=== PATIENT | female | born 1940 | race Caucasian/White ===

== ENCOUNTER → 2021-03-08 12:04 | Outpatient (CLI) | payer MEDICARE, SELFPAY ==
--- NOTE | 2021-03-08 | DI.RAD.S_ITS ---
PROCEDURE: XR DEXA AXIAL SKELETON INDICATIONS: encounter for screening of osteoporosis COMPARISON: None. FINDINGS: This blank DEXA report has been sent in error by the PACS system. The correct and complete report will be forthcoming in 1-2 days. Thank you for your patience and understanding. Dictated by: Sherice Magdaleno MD, PhD on 03/08/2021 at 13:11 Approved by: Sherice Magdaleno MD, PhD on 03/08/2021 at 13:12
== END ==
PROVIDERS: Referring Provider Internal Medicine; Visit Provider Internal Medicine
DX: Z78.0 Asymptomatic menopausal state (principal); Z13.820 Encounter for screening for osteoporosis; E11.9 Type 2 diabetes mellitus without complications; E07.9 Disorder of thyroid, unspecified
CPT/HCPCS: 77080

== ENCOUNTER → 2023-01-02 15:49 | Outpatient (CLI) | payer MEDICARE, SELFPAY ==
[2023-01-02 16:32] LABS: Influenza A - CEPHEID Flu A NEGATIVE (NEGATIVE); Influenza B - CEPHEID Flu B NEGATIVE (NEGATIVE); Respiratory Syncytial Virus Negative (Negative)
[2023-01-02 17:29] LABS: COVID-19 CEPHEID 4-PLEX PCR Negative (Negative)
== END ==
PROVIDERS: Visit Provider Physician Assistant
DX: J06.9 Acute upper respiratory infection, unspecified (principal)
CPT/HCPCS: 0241U

== ENCOUNTER → 2023-12-11 14:10 | Outpatient (CLI) | payer OTHER, MEDICARE, SELFPAY ==
--- NOTE | 2023-12-11 14:12 | DI.MG.S_ITS ---
BILATERAL DIGITAL SCREENING MAMMOGRAM 3D/2D WITH CAD: 12/11/2023 CLINICAL: Baseline exam. Routine screening. No prior exams were available for comparison. There are scattered areas of fibroglandular density in both breasts (category b / 25%-50% glandular tissue). Current study was also evaluated with a Computer Aided Detection (CAD) system. No significant masses, calcifications, or other findings are seen in either breast. IMPRESSION: NEGATIVE There is no mammographic evidence of malignancy. A 1 year screening mammogram is recommended. Based on the Tyrer Cuzick model (a risk assessment model) the patient's lifetime risk is 0.4% and her 10 year risk is 0.0%. According to the ACR, ACS, and NCCN guidelines, an annual breast MRI exam along with mammogram is recommended if the patient's lifetime risk is 20% or greater. This exam was interpreted at Station ID: [id number]. NOTE: For mammograms, a report in lay terms will be sent to the patient. Approximately 15% of breast malignancies will not be visualized mammographically. In the management of a palpable breast mass, a negative mammogram must not discourage biopsy of a clinically suspicious lesion. Electronically Signed By: Jasmine rizzo/[email or web address]:12/19/2023 10:58:27 letter sent: Normal Exam ACR BI-RADS Category 1: Negative 3341F
== END ==
PROVIDERS: PCP Student in an Organized Health Care Education/Training Program; Referring Provider Student in an Organized Health Care Education/Training Program; Visit Provider Student in an Organized Health Care Education/Training Program
DX: Z12.31 Encounter for screening mammogram for malignant neoplasm of breast (principal); R92.323 Mammographic fibroglandular density, bilateral breasts
CPT/HCPCS: 77063; 77067

== ENCOUNTER → 2024-09-13 09:32 | Outpatient (CLI) | payer MEDICARE, SELFPAY ==
--- NOTE | 2024-09-13 09:35 | DI.RAD.S_ITS ---
PROCEDURE: XR WRIST RT MIN 3V INDICATIONS: WRIST PAIN TECHNIQUE: 3 views of the wrist were acquired. COMPARISON: None. FINDINGS: Bones: No acute fractures or dislocations. No suspicious bony lesions. Mild degenerative changes in the wrist most prominent at the 1st carpometacarpal and triscaphe joints. Soft tissues: No suspicious soft tissue calcifications. IMPRESSION: Mild osteoarthrosis. No acute osseous abnormality. Approved by: Edgard Em M.D. on 09/13/2024 at 20:07
== END ==
PROVIDERS: PCP Family Medicine; Referring Provider Family Medicine; Visit Provider Family Medicine
DX: M19.031 Primary osteoarthritis, right wrist (principal); M18.11 Unilateral primary osteoarthritis of first carpometacarpal joint, right hand; M25.531 Pain in right wrist
CPT/HCPCS: 73110